=== PATIENT | male | born 1995 ===

== ENCOUNTER 2018-01-05 19:09 | Emergency (ER) | payer OTHER ==
[2018-01-05] MEDS ORDERED: Tetan/Diph/Pertus SYR(Tdap)* 0.5 ML SYR(BOOSTRIX) use SYR IM ONE (19:57)
--- NOTE | 2018-01-05 20:43 | ED ---
Laceration/Wound HPI - HPI Summary HPI Summary: Pt. is a 22-year-old male who presents to the emergency department for laceration to his right fifth digit of hand that occurred just prior to arrival. Pt. states [place] when he swung his arm back and finger was cut by a piece of rock. Unaware of last tetanus immunization. No past medical hx. Symptoms are mild in severity. Touching wound makes symptoms worse. Rest makes symptoms better. - History of Current Complaint Stated Complaint: RT HAND LACERATION Time Seen by Provider: 01/05/18 19:18 Hx Obtained From: Patient Pain Intensity: 4 - Allergy/Home Medications Allergies/Adverse Reactions: Allergies Allergy/AdvReac Type Severity Reaction Status Date / Time No Known Allergies Allergy Verified 01/05/18 19:11 Home Medications: Home Medications NK [No Home Medications Reported] 01/05/18 [History Confirmed 01/05/18] PMH/Surg Hx/FS Hx/Imm Hx Previously Healthy: Yes Infectious Disease History: No Infectious Disease History: Denies: Traveled Outside the in Last 30 Days - Social History Occupation: Works From/At Home Lives: With Family Alcohol Use: Occasionally Substance Use Type: Reports: None Smoking Status (MU): Never Smoked Tobacco Review of Systems Positive: Other - Finger laceration All Other Systems Reviewed And Are Negative: Yes Physical Exam Triage Information Reviewed: Yes Vital Signs On Initial Exam: Initial Vitals Temp Pulse Resp BP Pulse Ox 98.4 F 108 18 122/78 100 01/05/18 19:11 01/05/18 19:11 01/05/18 19:11 01/05/18 19:11 01/05/18 19:11 Vital Signs Reviewed: Yes Appearance: Positive: Well-Appearing - Pt. sitting on bed in NAD. Friend present. Skin: Positive: Warm, Dry Head/Face: Positive: Normal Head/Face Inspection Eyes: Positive: Normal Neck: Positive: Supple Musculoskeletal: Positive: Other - 1cm linear laceration noted over the PIP joint of the 5th digit of right hand. Full ROM with flexion and extension. No bony tenderness. Neurological: Positive: Normal, CN Intact II-III Psychiatric: Positive: Affect/Mood Appropriate Procedures - Laceration/Wound Repair 1 Location: upper extremity - 5th digit of right hand Description: Linear Anesthesia: Local, 1.0%, Lido - 2cc Betadine Prep?: No - hibiclens Laceration/Wound Explored: clean Closure: Single Layer Suture Type: Nylon - 4-0 Number of Sutures: 4 Layer Closure?: No Sterile Dressing Applied?: Yes Diagnostics - Vital Signs Vital Signs Temp Pulse Resp BP Pulse Ox 01/05/18 19:11 98.4 F 108 18 122/78 100 - Laboratory Lab Statement: Any lab studies that have been ordered have been reviewed, and results considered in the medical decision making process. Laceration Repair Course/Dx - Course Course Of Treatment: Pt. presenting to the ER for a simple finger laceration. Tetanus updated. Wound was closed as noted above. Finger splint placed to avoid bending PIP joint. Suture removal in 7-10 days. To keep wound clean and dry. To return to ER for redness, swelling, or drainage. Pt. understands and agrees with plan. - Differential Dx Differental Diagnoses: Avulsion, Foreign Body, Laceration, Tendon Laceration - Clinical Impression Provider Diagnoses: Finger laceration Discharge - Sign-Out/Discharge Documenting (check all that apply): Discharge/Admit/Transfer - Discharge Plan Condition: Good Disposition: HOME Patient Education Materials: Care For Your Stitches (ED), Laceration (ED) Referrals: [facility] [place] [place] [facility] [Outside] No Primary Care Phys,NOPCP [Primary Care Provider] - Additional Instructions: Suture removal in 7-10 days Keep wound clean and dry Avoid bending finger until stitches are removed Return to ER for redness, swelling or drainage from wound - Billing Disposition and Condition Condition: GOOD Disposition: Home
[2018-01-05 20:45] VITALS: BP 129/78
[2018-01-05] MEDS ORDERED: Bacitracin OINTMENT* 0.5% 0.5 oz TUBE ONE (20:59)
== END 2018-01-05 20:43 | disposition home or self-care (01) ==
LOC: ED 19:09
DX: S61.216A Laceration without foreign body of right little finger without damage to nail, initial encounter (principal); W22.8XXA Striking against or struck by other objects, initial encounter; Y93.11 Activity, swimming; Y92.89 Other specified places as the place of occurrence of the external cause; Z23 Encounter for immunization
CPT/HCPCS: 12001; 90471; 90715; 99282; A9270-GY